=== PATIENT | female | born 1985 | race Caucasian/White ===

== ENCOUNTER 2021-02-02 09:35 | Emergency (ER) | payer OTHER ==
[~2021-02-02] VITALS: Ht 162.6 cm; Wt 79.4 kg
[~2021-02-02 09:35] MED LIST: OMEP20EC9 PO; PREN-234 PO
[2021-02-02 09:44] VITALS: BP 126/90
--- NOTE | 2021-02-02 09:51 | NUR ---
Dr. Tenorio is evaluating patient in triage room.
--- NOTE | 2021-02-02 09:53 | NUR ---
pt ambulated to bed 7
[2021-02-02] MEDS ORDERED: LORazepam 1 MG TAB PO ONE (09:55)
--- NOTE | 2021-02-02 10:01 | NUR ---
35/F presents to ED with c/o anxiety. Patient states she has had worsening anxiety since yesterday, stating "I just feel restless and I cannot get any sleep." Patient states she has never been diagnosed with anxiety and states this is the first time she has felt like this. Patient appears anxious, states "I am just really tired and wish I could sleep." Patient denies alcohol or drug use, states she took benadryl and unknown pain medication this morning but states no relief of symptoms.
[2021-02-02] MEDS ORDERED: ATI.5 PO (10:44)
[2021-02-02 11:05] VITALS: BP 126/90
--- NOTE | 2021-02-02 11:06 | NUR ---
Patient discharged with v/s stable. Written and verbal after care instructions ABOUT MEDICATION, PANIC ATTACK, AND STRESS given and explained. Patient alert, oriented and verbalized understanding of instructions. Ambulatory with steady gait. All questions addressed prior to discharge. ID band removed. Patient advised to follow up with PMD. Rx of ATIVAN given. Patient educated on indication of medication including possible reaction and side effects. Opportunity to ask questions provided and answered.
== END 2021-02-02 11:06 | disposition home or self-care (01) ==
LOC: MED 09:35
DX: F41.9 Anxiety disorder, unspecified (principal); Z79.899 Other long term (current) drug therapy; Z98.890 Other specified postprocedural states
CPT/HCPCS: 81025; 99283

== ENCOUNTER 2023-08-02 18:15 | Emergency (ER) | payer OTHER ==
[~2023-08-02] VITALS: Ht 167.6 cm; Wt 72.6 kg
[~2023-08-02 18:15] MED LIST changes: +ATI.5 PO
[2023-08-02 18:44] VITALS: BP 145/83; PULSE 89; RESP 18; TEMP 98; O2SAT 98
[2023-08-02] MEDS ORDERED: KETOROLAC 60 MG/2 ML VIAL IM ONE (20:45)
[2023-08-02 21:22] LABS: APPEARANCE,URINE SL CLOUDY (CLEAR); BILIRUBIN,URINE NEGATIVE (NEGATIVE); BLOOD, URINE NEGATIVE (NEGATIVE); COLOR,URINE YELLOW (YELLOW); LEUKOCYTE ESTERASE ,URINE 1+ (NEGATIVE); NITRITE, URINE POSITIVE (NEGATIVE); PH,URINE 7.5 (5.0-9.0); PROTEIN,URINE NEGATIVE (NEGATIVE); UGLUCOSE NEGATIVE (NEGATIVE); UROBILINOGEN,URINE 0.2 EU/dL (0.2 - 1)
[2023-08-02 21:24] LABS: RBC,URINE 0 /HPF (0-5)
[2023-08-02 21:25] LABS: BACTERIA,URINE 3+ /HPF (None Seen); MUCUS,URINE None Seen /LPF (None Seen); SQUAMOUS EPITHELIAL CELL,UR 4-10 (MOD) /LPF (0-3 (FEW))
[2023-08-02 22:01] VITALS: O2SAT 98
[2023-08-02 22:24] LABS: BASOPHILS % (AUTO) 0.2 % (0.0-2.0); EOSINOPHILS # (AUTO) 0.1 K/uL (0-0.4); EOSINOPHILS % (AUTO) 1.3 % (0.0-4.0); HEMATOCRIT 38.8 % (36-48); HEMOGLOBIN 13.5 g/dL (12.0-16.0); LYMPHOCYTES # (AUTO) 2.8 K/uL (2.5-16.5); LYMPHOCYTES % (AUTO) 25.9 % (20.5-51.1); MEAN CORPUSCULAR HEMOGLOBIN 30 pg (27-31); MEAN CORPUSCULAR HGB CONC 35 g/dL (33-37); MEAN CORPUSCULAR VOLUME 84.9 fL (80-94); MONOCYTES # (AUTO) 0.9 K/uL (0.8-1.0); MONOCYTES % (AUTO) 8.7 % (1.7-9.3); NEUTROPHILS # (AUTO) 6.8 K/uL (1.8-7.7); NEUTROPHILS % (AUTO) 63.9 % (42.2-75.2); PLATELET COUNT (AUTO) 291 K/uL (140-450); RED BLOOD CELL COUNT(AUTO) 4.57 MIL/uL (4.20-5.40); RED CELL DISTRIBUTION WIDTH 13.1 % (11.6-13.7); WHITE BLOOD COUNT (AUTO) 10.7 K/uL (4.8-10.8)
[2023-08-02 22:44] LABS: ANION GAP 10.2 (8-16); CALCIUM 8.9 mg/dL (8.5-10.1); CARBON DIOXIDE 30.8 mmol/L (21-32); CREATININE 0.7 mg/dL (0.6-1.3)
[2023-08-02 22:54] LABS: BILIRUBIN,DIRECT 0.1 mg/dL (0.0-0.3); TOTAL BILIRUBIN 0.2 mg/dL (0.0-1.0)
[2023-08-02 22:55] LABS: ALBUMIN 3.5 g/dL (3.4-5.0); TOTAL PROTEIN, SERUM 8.2 g/dL (6.4-8.2)
[2023-08-02] MEDS ORDERED: CYCL-711 PO (23:19)
[2023-08-02] MEDS ORDERED: ACET-2619 PO (23:19)
[2023-08-02] MEDS ORDERED: IBUP-2213 PO (23:19)
== END 2023-08-02 23:36 | disposition home or self-care (01) ==
LOC: MED 18:15
DX: K80.20 Calculus of gallbladder without cholecystitis without obstruction (principal); M54.6 Pain in thoracic spine; M54.2 Cervicalgia; R07.89 Other chest pain; Z79.899 Other long term (current) drug therapy; V49.9XXA Car occupant (driver) (passenger) injured in unspecified traffic accident, initial encounter; Y93.89 Activity, other specified; Y92.410 Unspecified street and highway as the place of occurrence of the external cause; Y99.8 Other external cause status
CPT/HCPCS: 36415; 71046; 72050; 72072; 76700; 80048; 80076; 81001; 81025; 83690; 85025; 87086; 96372; 99285; J1885; Q0092